=== PATIENT | female | born 1970 | race Caucasian/White ===

== ENCOUNTER 2025-08-07 15:00 | Outpatient (RCR) | payer OTHER, SELFPAY ==
--- NOTE | 2025-07-05 10:31 | OTOPEVAL1 ---
Assessment and note entered by EZEQUIEL Roa/Umer, CHT Evaluation Information Assessment Status Evaluation Diagnosis Ganglion, unspecified hand Subjective Information Patient reports cutting the dorsum of the left middle finger, DIP joint, back in February. Urgent care closed the wound steri strips and glue, however she was particularly active after that and the wound re-opened. She has since been experiencing sensitivity at the scar site and she did have a bump here, however after receiving an injection with Dr. Moreland on 06/25/25, the bump has disappeared and she is having less pain. She continues to have sensitivity if the finger is bumped. She is left handed. Patient is not working at this time. She uses her hands very often for housework, gardening, etc. Reported Pain Level Pain Score 0: Self Report Assessment OT Clinical Summary Patient referred to OT with dx of ganglion cyst possible mucous cyst at the dorsum of her left middle finger DIP joint after she cut her finger with a sharp knife back in February. She presents with intact functional ROM, but a slight extension lag at the DIP joint (5-10 deg) which is passively correctable. She has tenderness with palpation, but does note that the tenderness is markedly improved after receiving the injection last week. Educated on the use of a massager for desensitization as well as for self scar tissue mobilization. Educated on ROM/tendon glides and payroll consultant/pinch strengthening. She demonstrates excellent understanding of all materials. Continued skilled OT indicated to progress HEP, for continued use of modalities, manual therapy, and progressive therapeutic exercise to facilitate reduced pain/sensitivity and improved strength for ADLs. Plan of Care Interventions Therapeutic Exercise,Manual Therapy,Neuro Re- education,Therapeutic Activities,Ultrasound, Paraffin OT Services Indicated Yes Treatment Frequency and 1x/week for 4 visits Duration These treatments will address the objective and functional deficits as defined above. The patient will be advanced safely and appropriately in order for the patient to progress towards his/her prior level of function. Additional exercises will be introduced and as well as a comprehensive home exercise program upon discharge, if needed, ?to ensure carryover of functional gains achieved in the clinic. This treatment plan has been reviewed and agreement upon by the patient.
--- NOTE | 2025-07-05 10:31 | OPREHPOC ---
Outpatient Therapy Plan of Care This is a Multidisciplinary Plan of Care that may contain components documented by all disciplines (PT, OT, and ST.) OT Problem 1 OT Problem #1 Knowledge Deficit OT Goal 1 Goal / Goal Update 1. Patient to be independent with instructed materials. Target Visit 4 OT Problem 2 OT Problem #2 Pain OT Goal 1 Goal / Goal Update 1. Patient to report 0/10 left middle finger pain in the last week. Target Visit 4 OT Problem 3 OT Problem #3 Impaired Range of Motion OT Goal 1 Goal / Goal Update 1. Pt to increase left middle finger DIP extension to neutral. Target Visit 4 OT Problem 4 OT Problem #4 Impaired Strength OT Goal 1 Goal / Goal Update 1. Pt to increase left artist scientific strength from 48 lbs. to 53 lbs. 2. Pt to increase left palmar pinch strength from 12 to 14 lbs. Target Visit 4
--- NOTE | 2025-08-07 15:33 | OTOPDC ---
Assessment and note entered by Edilson Scruggs, EZEQUIEL/Umer, CHT Evaluation Information Assessment Status Discharge Diagnosis Ganglion, unspecified hand Subjective Information HPI: Patient reports cutting the dorsum of the left middle finger, DIP joint, back in February. Urgent care closed the wound steri strips and glue , however she was particularly active after that and the wound re-opened. 08/07/25: Patient has participated in 4 OT sessions focused on the left middle finger DIP ROM and sensitivity. She continues to experience sensitivity if the finger is bumped, but she notes that as the finger straightens she is bumping it less. She is left handed. Assessment OT Clinical Summary Patient referred to OT with dx of ganglion cyst possible mucous cyst at the dorsum of her left middle finger DIP joint after she cut her finger with a sharp knife back in February. She has progressed from 5-10 deg. extension lag at the DIP joint to achieving neutral today. She is working on strengthening and demonstrates excellent understanding of all materials. Her motor boss strength improved from 48 to 57 lbs. Palmar pinch strength improved from 12 to 14 lbs. At this time the patient is independent with all materials and is ready for discharge. Patient to follow up with MD if extension lag returns or if she has any new concerns. D/C OT with therapy goals met. Plan of Care OT Services Indicated No
== END 2025-08-08 07:55 | disposition home or self-care (01) ==
LOC: ANHGOSHOT 15:00
PROVIDERS: PCP Nurse Practitioner Family; Visit Provider Plastic Surgery
DX: M67.449 Ganglion, unspecified hand (principal)
CPT/HCPCS: 97018; 97110; 97140; 97165